=== PATIENT | male | born 1990 | race Caucasian/White ===

== ENCOUNTER 2016-11-27 16:18 | Emergency (ER) | payer OTHER ==
--- NOTE | 2016-11-27 16:34 | EDPHY ---
[id number] male right wrist injury 2 days ago while snowboarding. This was aFOOSH type injury. He has pain and swelling to the thumb aspect of the wrist. Hurts to move. No previous injury. No other injuries. Patient is right hand ROS Constitutional. no fever/chills, no weakness Eyes. no problems with vision ENT. no sore throat, no nasal drainage Cardiovascular. no chest pain Respiratory. no shortness of breath, no cough Abdominal. no abdominal pain, no nausea/vomiting, no diarrhea . no problems urinating MS. Right wrist pain Skin. no rash Lymph. no swollen glands Neuro. no headache, no dizziness, no difficulty walking or with speech Past Medical/Surgical History: Healthy Social History: Single, nonsmoker, no alcohol Physical Exam: General Appearance: Alert well-developed male mild distress vital signs are stable Eyes: Pupils equal and round no pallor or injection. ENT, Mouth: Mucous membranes are moist. Respiratory: There are no retractions, lungs are clear to auscultation. Cardiovascular: Regular rate and rhythm. Gastrointestinal: Abdomen is soft and nontender, no masses, bowel sounds normal. Neurological: Awake and alert, sensory and motor exams grossly normal. Skin: Warm and dry, no rashes. Musculoskeletal: Neck is supple nontender. Extremities tenderness to the distal radius as well as over the navicular in the anatomical snuffbox. Mild swelling to this area. No obvious deformity. No tenderness over the ulna or ulnar aspect of the wrist Psychiatric: Patient is oriented X 3, there is no agitation. Constitutional: Initial Vital Signs Temperature (C) 36.7 C 11/27/16 16:18 Heart Rate 70 11/27/16 16:18 Respiratory Rate 16 11/27/16 16:18 Blood Pressure 98/82 H 11/27/16 16:18 O2 Sat (%) 99 11/27/16 16:18 O2 Delivery Mode Room Air Allergies/Adverse Reactions: No Known Allergies Allergy (Unverified 11/27/16 16:36) Home Medications: Medication Instructions Recorded Hydrocodone/APAP 5/325 [[place] 1 each PO Q4-6PRN PRN #14 tab 11/27/16 5/325 (*)] Medical Decision Making - Diagnostics Imaging: X-ray right wrist interpreted by me shows a nondisplaced navicular fracture. ED Course/Re-evaluation: Re-evaluation at 5:10 p.m. patient and I discussed imaging studies, treatment plan including importance of follow-up further evaluation. He expresses understanding and agreement Patient is placed in a fiberglass thumb spica splint. Post splint application shows good anatomic position and distal motor vascular sensitivity to be intact Differential Diagnosis: I considered fracture, dislocation, sprain Departure - Departure Disposition: Home, Routine, Self-Care Clinical Impression: Fracture of scaphoid Qualifiers: Encounter type: initial encounter Fracture type: closed Laterality: right Condition: Good Instructions: Scaphoid Fracture (ED) Additional Instructions: Splint on until you see orthopedist. Call tomorrow for appointment in 5-7 days. Tylenol or hydrocodone for pain. Do not use ibuprofen. Return for worsening symptoms. Referrals: Yang Rey MD [Medical Doctor] - 5-7 days, call for appt. Prescriptions: Hydrocodone/APAP 5/325 [[place] 5/325 (*)] 1 each PO Q4-6PRN PRN #14 tab PRN Reason: Pain, Moderate
[2016-11-27 16:38] VITALS: BP 98/82; PULSE 70; RESP 16; TEMP 98.1; O2SAT 99
--- NOTE | 2016-11-27 17:15 | DX ---
Right wrist 4 views History: Fall snowboarding 3 days ago, pain. Comparison: None available. Findings: There is a nondisplaced fracture of the scaphoid waist. Alignment is normal. Bone mineraliz ation is normal. Moderate dorsal soft tissue swelling is present. Impression: Nondisplaced fracture of the scaphoid waist.
== END 2016-11-27 17:33 | disposition home or self-care (01) ==
DX: S62.001A Unspecified fracture of navicular [scaphoid] bone of right wrist, initial encounter for closed fracture (principal); V00.318A Other snowboard accident, initial encounter; Y93.23 Activity, snow (alpine) (downhill) skiing, snowboarding, sledding, tobogganing and snow tubing